=== PATIENT | male | born 1980 | race Caucasian/White ===

== ENCOUNTER 2023-06-26 21:29 | Emergency (ER) | payer OTHER, SELFPAY ==
[2023-06-26 21:29] VITALS: BMI 24.0
[2023-06-26 21:37] VITALS: BP 147/93
[2023-06-26 21:57] LABS: % Basophils 0.8 % (0-2); % Immature Granulocytes 0.4 % (0-0.5); % Lymphocytes 21.5 % (20.5-51.1); % Monocytes 18.8 % (1.7-9.3); % Neutrophils 58.5 % (42.2-75.2); Absolute Lymphocytes 1.1 10^3/uL (1.2-3.4); Absolute Neutrophils 3.1 10^3/uL (1.4-6.5); Hematocrit 41.5 % (39.0-52.0); Hemoglobin 14.3 g/dL (13.0-18.0); Mean Corp Hgb Conc. 34.5 g/dL (33.0-37.0); Mean Corpuscular Hgb 29.1 pg (27.0-31.0); Mean Corpuscular Volume 84.5 fL (80.0-94.0); Mean Platelet Volume 10.6 fL (7.4-10.4); Nucleated Red Blood Cells % 0 % (-); Platelet Count 196 10^3/uL (130-400); Red Blood Cell Count 4.91 10^6/uL (4.70-6.10); Red Cell Dist. Width 12.9 % (11.5-14.5); White Blood Cell Count 5.3 10^3/uL (4.8-10.8)
[2023-06-26 22:09] LABS: COVID-19 Antigen Negative (Negative)
[2023-06-26 22:14] LABS: ALT (SGPT) 25 U/L (0-50); AST (SGOT) 46 U/L (17-59); Albumin 4.6 g/dl (3.5-5.0); Alkaline Phosphatase 58 U/L (38-126); Blood Urea Nitrogen 13 mg/dl (9-20); Calcium 9.3 mg/dl (8.4-10.2); Carbon Dioxide 27 mmol/L (22-30); Chloride 100 mmol/L (98-107); Glucose 101 mg/dl (70-99); Sodium 133 mmol/L (135-145); Total Bilirubin 0.6 mg/dl (0.2-1.3); Total Protein 7.5 g/dl (6.3-8.2); eGFR > 60.00
[2023-06-26 22:18] LABS: Troponin I < 0.012 ng/ml
[2023-06-26 23:50] VITALS: BP 131/78
[2023-06-27] VITALS: BP 136/77
--- NOTE | 2023-06-27 00:56 | ED.GENMED ---
History of Present Illness
General
Chief Complaint: Chest Pain
Source: patient
Exam Limitations: none
Time Seen by Provider: 06/26/23 23:57
Nursing documentation reviewed up to this point in time: agreed with
Travel History
Have you had any contact with someone who has COVID-19?: No
Do you have any symptoms of coronavirus? Fever > 100 degrees, chills, cough, shortness of breath, sore throat, loss of taste or smell, muscle aches, or headache?: No
History of Present Illness
History of Present Illness:
This is a 42-year-old gentleman with no significant past medical history save for occasional GERD.
He complains of 1-1/2-day history of generalized aches, mild sore throat, intermittent dry cough, mild nasal congestion. His daughter has had similar URI symptoms that began over the weekend.
He admits to difficulty sleeping last night and again tonight with worsening of symptoms along with some chest pressure and feeling mildly short of breath, worse when lying supine. Admits to feeling anxious more so tonight and difficulty sleeping
which prompted ED visit.
He has not taken anything for symptoms.
No recent travel.
He denies leg pain or swelling.
Past History
Past History
ED Past Medical History: GERD
ED Past Surgical History: Orthopedic (Achilles repair)
Patient has exhibited threatening behavior?: No
Social History
Tobacco: Non-smoker
Alcohol: Occasional
Drug: None
Personal:
Living: with family
Employment: Employed (Teacher)
Family History
Family History: Other (Noncontributory)
Phy Exam
Physical Exam
Physical Exam:
GENERAL: 42-year-old male appears his stated age, awake and alert, mildly apprehensive otherwise in no acute distress. Respirations are easy and nonlabored. Low-grade fever 100 �F noted.
EYE: anicteric
NECK: Supple, nontender, no meningismus, no significant adenopathy.
ENT: posterior pharynx is clear, oral mucosa is moist. Mildly boggy turbinates with scant rhinorrhea.
CARDIAC: Regular rate and rhythm. no murmur.
LUNGS: Clear breath sounds bilaterally, no acute respiratory distress, no wheezes/rales/rhonchi
ABDOMEN: Soft, nondistended, without focal tenderness, no r/g, no cvat. normoactive BS.
NEUROLOGICAL: Alert and oriented x3, no focal neuro deficits.
SKIN: Hot to touch and dry, normal color, skin intact. No rash.
MUSCULOSKELETAL: No C/C/E. peripheral pulses are full and equal b/l. No palpable tenderness.
PSYCH: Normal and appropriate interaction.
Scores
Heart Score for Chest Pain Patients
STEMI patient?: No
History: Slightly or Non-Suspicious
ECG: Normal
Age: </= 45 years
Risk Factors: No Risk Factors
Troponin: </= Normal Limit
Heart Score for Chest Pain Patients: 0
Heart Score Risk: 2.5% MACE over next 6 weeks
Course
Orders/Labs/Results
Orders:
Orders
06/26/23 21:30
Electrocardiogram (*1) Urgent
Reason for Study: Chest Pain
Cardiac Monitoring- Treatment ONCE
EKG- Treatment ONCE
IV Insert/Care/Rem.- Treatment PRN
O2 Therapy [RESP] Urgent
Titrate/Wean O2 to maintain O2 sat greater than (%): 90
Special Instructions: Maintain sats >/=90%
Pulse Ox/spot Check [RESP] Urgent
Quantity: 1
Special Instructions: ON ROOM AIR
06/26/23 21:49
COVID-19 Antigen Urgent
Source: Nasal Swab
Complete Blood Count/With Diff Urgent
Comprehensive Metabolic Panel Urgent
Troponin I Urgent
Influenza A+B Rapid Molecular Urgent
CHRISTIANO Source: Nasal Swab
Specimen Description:
06/27/23 00:55
Acetaminophen [Tylenol] 1,000 mg PO NOW STA
Ibuprofen [Motrin] 800 mg PO NOW STA
Oseltamivir Phosphate [Tamiflu] 75 mg PO NOW STA
Abnormal Lab Results
06/26/23
21:49
MPV 10.6 H fL
(7.4-10.4)
Absolute Lymphs (auto) 1.1 L 10^3/uL
(1.2-3.4)
Absolute Monos (auto) 1.0 H 10^3/uL
(0.1-0.6)
Monocytes % 18.8 H %
(1.7-9.3)
Sodium 133 L mmol/L
(135-145)
Glucose 101 H mg/dl
(70-99)
06/26/23 21:49
06/26/23 21:49
Vital Signs
Initial and Last Documented VS:
Initial Vital Signs
Temp Pulse Resp BP Pulse Ox
97.8 F 85 19 147/93 97
06/26/23 21:37 06/26/23 21:37 06/26/23 21:37 06/26/23 21:37 06/26/23 21:37
Last Documented Vital Signs
Temp Pulse Resp BP Pulse Ox
97.8 F 73 18 131/78 100
06/26/23 21:37 06/26/23 23:51 06/26/23 23:51 06/26/23 23:50 06/27/23 00:02
MDM/Problems Addressed
Differential Diagnosis Includes:
Patient presents with 1.5-day history of URI symptoms presents with chest pain, shortness of breath, worse at nighttime accompanied with mild anxiety.
Concern for viral URI, pneumonia, ACS, exacerbation of GERD.
No history of thromboembolism nor risk factors for such.
Noted to have low-grade fever and I suspect URI symptoms and fever are cause for mild anxiety and difficulty sleeping. No prior history of anxiety nor insomnia.
No respiratory distress noted on exam and lungs are clear to auscultation. Nothing on exam to suspect pneumonic process nor CHF.
Labs are unremarkable with low normal white blood cell count. Unremarkable chemistries. Troponin is negative.
EKG is unremarkable. Normal sinus rhythm, normal axis, normal intervals, no acute ST-T wave abnormalities. No old EKGs to compare.
COVID antigen is negative rapid influenza is positive for influenza A.
I suspect fever, URI and difficulty sleeping are all acute influenza related.
As symptoms began less than 2 days ago patient is a candidate for Tamiflu and recommend initiation tonight.
Will give Tylenol and ibuprofen for fever, aches, chills.
No risk factors for CAD. Heart score is 0.
Recommend supportive measures, staying well-hydrated on a daily basis, rest, continuing antipyretic 4 times daily as needed for fever, aches.
Recommend he remain out of work until fever free for 24 hours. Work note has been provided.
Follow-up with PCP for recheck.
Return precautions discussed.
*Pulse Oximetry
Patient hypoxic: no
*EKG
Interpreted by ED Provider?: Yes
Interpretation: normal
Comparison EKG: no comparison EKG present
Rate: normal
Rhythm: sinus
[place]: normal axis
Interval: normal interval
QRS Pattern: normal QRS
Ischemia: no ischemia
*It Field Technician Interpretation
Rate: normal
Interpretation: normal
Rhythm: sinus
*Critical Care Note
Total Time (30-74mins, 75-104mins- exclusive of procedures): Not Applicable
ED Attending Note
-
Portions of this chart may have been created with voice recognition software.� Occasional wrong word or��sound alike� substitutions may have occurred due to the inherent limitations of voice recognition software.
Discharge Plan
Departure
Patient Disposition: Home (Routine Discharge)
Date of Disposition: 06/27/23
Time of Disposition: 01:11
Patient with high blood pressure during this ER visit?: No
Discharge Problem:
Influenza A
Instructions: Flu, Adult ED, Chest Pain PCP Follow Up
Prescriptions:
New
oseltamivir [Tamiflu] 75 mg capsule
75 mg PO BID Qty: 10 0RF
Referrals:
Patric Han CRNP [Family Provider] - Call in 1-3 days for appt
Stand Alone Forms: Return to Work
Interventions
Interventions:
*Risk Screen - Suicide Last Done: 06/26/23 21:37
*General Assessment Last Done: 06/26/23 21:37
*Neglect/Abuse Screening Last Done: 06/26/23 21:37
ED- Fall Risk Assessment Last Done: 06/27/23 00:02
*ED COVID-19 Vaccine History Last Done: 06/26/23 21:37
ED- Cardiac Assessment Last Done: 06/27/23 00:02
[2023-06-27 01:00] VITALS: BP 135/80
[2023-06-27] MEDS: TYLENOL 1000 MG PO (01:03)
[2023-06-27] MEDS: MOTRIN 800 MG PO (01:04)
[2023-06-27] MEDS: TAMIFLU 75 MG PO (01:05)
== END 2023-06-27 01:33 | disposition home or self-care (01) ==
LOC: EMR 21:29
PROVIDERS: Emergency Medicine; EMERGENCY PHYSICIAN Emergency Medicine; FAMILY PHYSICIAN Nurse Practitioner Family
DX: J10.1 Influenza due to other identified influenza virus with other respiratory manifestations (principal); R07.89 Other chest pain; K21.9 Gastro-esophageal reflux disease without esophagitis
CPT/HCPCS: 99283; 80053; 84484; 85025; 87502; 87811; 93005

== ENCOUNTER 2023-07-05 17:04 | Emergency (ER) | payer OTHER, SELFPAY ==
[2023-07-05 17:22] VITALS: BP 135/83
[2023-07-05 17:59] LABS: % Basophils 0.3 % (0-2); % Immature Granulocytes 0.2 % (0-0.5); % Lymphocytes 32.2 % (20.5-51.1); % Monocytes 9.8 % (1.7-9.3); % Neutrophils 57.5 % (42.2-75.2); Absolute Lymphocytes 1.9 10^3/uL (1.2-3.4); Absolute Monocytes 0.6 10^3/uL (0.1-0.6); Absolute Neutrophils 3.3 10^3/uL (1.4-6.5); Hematocrit 42.7 % (39.0-52.0); Hemoglobin 14.8 g/dL (13.0-18.0); Mean Corp Hgb Conc. 34.7 g/dL (33.0-37.0); Mean Corpuscular Hgb 29.2 pg (27.0-31.0); Mean Corpuscular Volume 84.2 fL (80.0-94.0); Mean Platelet Volume 10.6 fL (7.4-10.4); Nucleated Red Blood Cells % 0 % (-); Platelet Count 351 10^3/uL (130-400); Red Blood Cell Count 5.07 10^6/uL (4.70-6.10); Red Cell Dist. Width 12.3 % (11.5-14.5); White Blood Cell Count 5.7 10^3/uL (4.8-10.8)
[2023-07-05 18:14] LABS: ALT (SGPT) 23 U/L (0-50); AST (SGOT) 36 U/L (17-59); Alkaline Phosphatase 53 U/L (38-126); Blood Urea Nitrogen 10 mg/dl (9-20); Calcium 9.8 mg/dl (8.4-10.2); Carbon Dioxide 26 mmol/L (22-30); Chloride 101 mmol/L (98-107); Glucose 113 mg/dl (70-99); Potassium 4.1 mmol/L (3.5-5.1); Sodium 136 mmol/L (135-145); Total Bilirubin 0.9 mg/dl (0.2-1.3); Total Protein 8.2 g/dl (6.3-8.2); eGFR > 60.00
[2023-07-05 18:24] LABS: Troponin I < 0.012 ng/ml
--- NOTE | 2023-07-05 19:59 | ED.GENMED ---
History of Present Illness
General
Chief Complaint: Breathing Problem
Time Seen by Provider: 07/05/23 19:57
Travel History
Have you had any contact with someone who has COVID-19?: No
Do you have any symptoms of coronavirus? Fever > 100 degrees, chills, cough, shortness of breath, sore throat, loss of taste or smell, muscle aches, or headache?: No
History of Present Illness
History of Present Illness:
HPI: The patient had chest pain and shortness of breath. He was diagnosed with the flu a week ago. He feels generally unwell. He has not been eating or drinking well. He feels dehydrated. He had been drinking alcohol on a daily basis until a
couple of days ago. He has been trying to be cautious about his cholesterol and his alcohol intake.
EXAM:
GENERAL: Well appearing in no distress
HEENT: Moist oral mucosa
CARDIOVASCULAR: No murmurs, normal heart rate and rhythm, No chest wall tenderness
PULMONARY: No respiratory distress, breath sounds are clear and equal
ABDOMEN: Soft with no peritoneal signs, no tenderness
NEUROLOGIC: Excellent strength all extremities, no coordination deficits
PSYCHIATRIC: Appropriate mental status, fair insight and judgement, no asterixis, appears somewhat anxious
EXTREMITIES: Nontender, no edema, moves all extremities equally
SKIN: No rash, no lesions
ED COURSE:
8:40 PM: I initially evaluated patient
NUMBER AND COMPLEXITY OF PROBLEMS ADDRESSED AT THE ENCOUNTER
� Chronic conditions affecting care: GERD, daily alcohol use
� Acute Exacerbation and/or Progression of Chronic Illness: This is an acute problem
� Differential Diagnosis includes: Anxiety, alcohol withdrawal, electrolyte, HOMA, ACS
AMOUNT AND/OR COMPLEXITY OF DATA TO BE REVIEWED AND ANALYZED
� I performed an independent evaluation of and my interpretation is:
EKG: Sinus 74, normal axis, incomplete right bundle branch block, nonspecific ST abnormality
CT:
X-rays:
Laboratory Studies: CBC, BMP, and troponin are all normal
Other:
� Review of other/old records: Blood work from earlier this month was unremarkable
� Clinical information was obtained by an independent historian: I spoke to the patient's aunt at bedside
� Prescriptions/Medications Considered but not given:
� Further testing considered but not performed: Considered/offered [facility] evaluation however the patient states he has resources available to him through [employer] [facility] he [facility]
RISK OF COMPLICATIONS AND/OR MORBIDITY OR MORTALITY OF PATIENT MANAGEMENT
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
� Discussion with other providers:
� Escalation of care including admission/observation vs risk of discharge considered: Blood work is unremarkable. Favor anxiety and/or alcohol withdrawal as opposed to any other more serious etiology. He was given fluids to
rehydrate him and then he was also given benzos. On reassessment at 10 PM, he feels significant improved. He does request something to help with his symptoms. Will give very short course of benzo as outpatient.
Past History
Past History
ED Past Medical History: GERD
ED Past Surgical History: Orthopedic (Achilles repair)
Patient has exhibited threatening behavior?: No
Social History
Tobacco: Non-smoker
Alcohol: Occasional
Drug: None
Personal:
Living: with family
Employment: Employed (Teacher)
Family History
Family History: Other (Noncontributory)
Phy Exam
Physical Exam
Physical Exam:
See HPI
Course
Orders/Labs/Results
Orders:
Orders
07/05/23 17:26
Electrocardiogram (*1) Urgent
Reason for Study: Other
Other Reason for Exam: SOB
07/05/23 17:27
EKG- Treatment ONCE
07/05/23 17:38
Complete Blood Count/With Diff Urgent
Comprehensive Metabolic Panel Urgent
Troponin I Urgent
07/05/23 20:16
0.9% Sodium Chloride 1000 ml [Nss] 1,000 ml IV BOLUS
Lorazepam [Ativan] 1 mg IV NOW STA
Abnormal Lab Results
07/05/23
17:38
MPV 10.6 H fL
(7.4-10.4)
Monocytes % 9.8 H %
(1.7-9.3)
Glucose 113 H mg/dl
(70-99)
07/05/23 17:38
07/05/23 17:38
Vital Signs
Initial and Last Documented VS:
Initial Vital Signs
Temp Pulse Resp BP Pulse Ox
98.1 F 84 20 135/83 99
07/05/23 17:22 07/05/23 17:22 07/05/23 17:22 07/05/23 17:22 07/05/23 17:22
Last Documented Vital Signs
Temp Pulse Resp BP Pulse Ox
98.1 F 84 20 135/83 99
07/05/23 17:22 07/05/23 17:22 07/05/23 17:22 07/05/23 17:22 07/05/23 17:22
*Critical Care Note
Total Time (30-74mins, 75-104mins- exclusive of procedures): Not Applicable
ED Attending Note
-
Portions of this chart may have been created with voice recognition software.� Occasional wrong word or��sound alike� substitutions may have occurred due to the inherent limitations of voice recognition software.
Discharge Plan
Departure
Prescriptions:
No Action
oseltamivir [Tamiflu] 75 mg capsule
75 mg PO BID Qty: 10 0RF
Interventions
Interventions:
*Risk Screen - Suicide Last Done: 07/05/23 17:22
*General Assessment Last Done: 07/05/23 17:22
ED- Cardiac Assessment Last Done: 07/05/23 20:36
ED- Pulmonary Assessment Last Done: 07/05/23 20:36
[2023-07-05] MEDS: NSS 1000 IV (20:28)
[2023-07-05] MEDS: ATIVAN 1 MG IV (20:29)
--- NOTE | 2023-07-05 22:13 | ED.GENMED ---
History of Present Illness
General
Chief Complaint: Breathing Problem
Time Seen by Provider: 07/05/23 19:57
Travel History
Have you had any contact with someone who has COVID-19?: No
Do you have any symptoms of coronavirus? Fever > 100 degrees, chills, cough, shortness of breath, sore throat, loss of taste or smell, muscle aches, or headache?: No
Past History
Past History
ED Past Medical History: GERD
ED Past Surgical History: Orthopedic (Achilles repair)
Patient has exhibited threatening behavior?: No
Social History
Tobacco: Non-smoker
Alcohol: Occasional
Drug: None
Personal:
Living: with family
Employment: Employed (Teacher)
Family History
Family History: Other (Noncontributory)
Course
Orders/Labs/Results
Orders:
Orders
07/05/23 17:26
Electrocardiogram (*1) Urgent
Reason for Study: Other
Other Reason for Exam: SOB
07/05/23 17:27
EKG- Treatment ONCE
07/05/23 17:38
Complete Blood Count/With Diff Urgent
Comprehensive Metabolic Panel Urgent
Troponin I Urgent
07/05/23 20:16
0.9% Sodium Chloride 1000 ml [Nss] 1,000 ml IV BOLUS
Lorazepam [Ativan] 1 mg IV NOW STA
Abnormal Lab Results
07/05/23
17:38
MPV 10.6 H fL
(7.4-10.4)
Monocytes % 9.8 H %
(1.7-9.3)
Glucose 113 H mg/dl
(70-99)
07/05/23 17:38
07/05/23 17:38
Vital Signs
Initial and Last Documented VS:
Initial Vital Signs
Temp Pulse Resp BP Pulse Ox
98.1 F 84 20 135/83 99
07/05/23 17:22 07/05/23 17:22 07/05/23 17:22 07/05/23 17:22 07/05/23 17:22
Last Documented Vital Signs
Temp Pulse Resp BP Pulse Ox
98.1 F 84 20 135/83 99
07/05/23 17:22 07/05/23 17:22 07/05/23 17:22 07/05/23 17:22 07/05/23 17:22
ED Attending Note
-
Portions of this chart may have been created with voice recognition software.� Occasional wrong word or��sound alike� substitutions may have occurred due to the inherent limitations of voice recognition software.
Discharge Plan
Departure
Patient Disposition: Home (Routine Discharge)
Date of Disposition: 07/05/23
Time of Disposition: 22:10
Patient with high blood pressure during this ER visit?: Yes
Discharge Problem:
Anxiety
Instructions: Anxiety, Adult ED
Prescriptions:
New
alprazolam 1 mg tablet
1 mg PO HS PRN (Reason: anxiety) Qty: 5 0RF
No Action
oseltamivir [Tamiflu] 75 mg capsule
75 mg PO BID Qty: 10 0RF
Activity Restrictions/Additional Instructions:
I have given you a short course of Xanax/alprazolam. Limit the use of this medication as it is highly addictive. It is actually works the same way as alcohol. Try to use as minimal amount of this as needed. Follow-up with your PMD. Regarding
sleep, you could try [id number] Unisom�the type that has doxylamine (you could just take generic doxylamine).
Interventions
Interventions:
*Risk Screen - Suicide Last Done: 07/05/23 17:22
*General Assessment Last Done: 07/05/23 17:22
ED- Cardiac Assessment Last Done: 07/05/23 20:36
ED- Pulmonary Assessment Last Done: 07/05/23 20:36
[2023-07-05 23:03] VITALS: BP 120/70
== END 2023-07-05 23:04 | disposition home or self-care (01) ==
LOC: EMR 17:04
PROVIDERS: Emergency Medicine; EMERGENCY PHYSICIAN Emergency Medicine; FAMILY PHYSICIAN Nurse Practitioner Family
DX: F41.9 Anxiety disorder, unspecified (principal); F10.90 Alcohol use, unspecified, uncomplicated; K21.9 Gastro-esophageal reflux disease without esophagitis
CPT/HCPCS: 99284; 96374; 96361; 80053; 84484; 85025; 93005

== ENCOUNTER → 2023-09-03 12:39 | Outpatient (REF) | payer SELFPAY | LOC: HWRAD 12:39 | PROVIDERS: ATTENDING PHYSICIAN Nurse Practitioner Family | DX: E78.5 Hyperlipidemia, unspecified (principal) | CPT/HCPCS: 75571 ==

== ENCOUNTER → 2023-10-03 14:33 | Outpatient (REF) | payer OTHER, SELFPAY | LOC: HWRCS 14:33 | PROVIDERS: ATTENDING PHYSICIAN Nurse Practitioner Family | DX: I31.39 Other pericardial effusion (noninflammatory) (principal) | CPT/HCPCS: 93306 ==

== ENCOUNTER → 2023-12-27 07:30 | Outpatient (REF) | payer OTHER, SELFPAY | LOC: RCS 07:30 | PROVIDERS: ATTENDING PHYSICIAN Internal Medicine Cardiovascular Disease; FAMILY PHYSICIAN Nurse Practitioner Family | DX: R07.89 Other chest pain (principal) | CPT/HCPCS: 93017 ==

== ENCOUNTER → 2024-02-10 06:23 | Day surgery (SDC) | payer OTHER, SELFPAY | LOC: GI 06:23 | PROVIDERS: ATTENDING PHYSICIAN Internal Medicine Gastroenterology | DX: Z12.11 Encounter for screening for malignant neoplasm of colon (principal); K64.8 Other hemorrhoids; K22.70 Barrett's esophagus without dysplasia | CPT/HCPCS: 43239; G0121; 88305 ==

== ENCOUNTER → 2024-05-29 15:06 | Outpatient (REF) | payer OTHER, SELFPAY | LOC: HWRAD 15:06 | PROVIDERS: ATTENDING PHYSICIAN Nurse Practitioner Family | DX: R07.81 Pleurodynia (principal) | CPT/HCPCS: 71046; 71100 ==